=== PATIENT | male | born 1940 | race Caucasian/White ===

== ENCOUNTER 2021-08-21 16:12 | Inpatient (IN) | payer MEDICARE, OTHER ==
[~2021-08-21] VITALS: Ht 208.3 cm; Wt 79.6 kg
[2021-08-21 16:41] VITALS: BP 122/67; PULSE 83; TEMP 97.8
[2021-08-21] MEDS ORDERED: TYLENOL 325MG325 MG PO (16:48)
[2021-08-21] MEDS ORDERED: LYRICA 50MG CAP50 MG PO ×2 (16:48→16:51)
[2021-08-21] MEDS ORDERED: EPA FISH OIL1 SGL PO (16:51)
[2021-08-21] MEDS ORDERED: IRON BISGLYCINA28 MG PO (16:52)
[2021-08-21] MEDS ORDERED: PRILOSEC 20MG20 MG PO (16:52)
[2021-08-21] MEDS ORDERED: K-DUR 10 MEQ T10 MEQ (16:53)
[2021-08-21] MEDS ORDERED: LUTEIN6 MG PO (16:55)
[2021-08-21] MEDS ORDERED: LANOXIN 0.120.125 MG PO (16:56)
[2021-08-21] MEDS ORDERED: VITAMIN D31000 IU PO (16:58)
[2021-08-21] MEDS ORDERED: FLOMAX 0.40.4 MG/CAP PO (16:59)
[2021-08-21 17:53] LABS: PROTHROMBIN TIME 11.4 SECONDS (9.7-12.8)
[2021-08-21 17:55] LABS: PARTIAL THROMBOPLASTIN TIME 28.1 SECONDS (26.0-37.0)
--- NOTE | 2021-08-21 19:00 | NUR ---
RECEIVED CHANGE OF SHIFT REPORT FROM DAY SHIFT RN.
--- NOTE | 2021-08-21 19:00 | NUR ---
Admission assessment completed, alert/oriented, poor historian, denies pain or discomfort at this time, I notified Hospitalist of his arrival to room 331, notified his of his arrival, reviewed meds/ allergies/ pharmacy with her over the phone as again patient is poor historian, heart irregular/ placed on tele and in A.fib and started on heparin gtt, lungs CTA/ denies resp.difficulty, IV present to right hand that was started at [facility]/ 20g Iv, he denies other needs at this time, will continue to monitor
[2021-08-21 20:18] VITALS: BP 107/78; PULSE 53; TEMP 97.4
[2021-08-22 00:20] VITALS: BP 113/65; PULSE 75; TEMP 98
[2021-08-22 04:17] VITALS: BP 112/69; PULSE 67; TEMP 98
--- NOTE | 2021-08-22 05:30 | NUR ---
CONFIRMED WITH ONCALL HOSPITALIST TO READ EKG TO BE DONE NOW ACCORDING TO TELE PROTOCOL.
--- NOTE | 2021-08-22 07:02 | NUR ---
CHANGE OF SHIFT REPORT GIVEN TO DAY SHIFT RNKIA.
[2021-08-22 07:20] VITALS: BP 115/69; PULSE 74; TEMP 97.8
[2021-08-22 08:09] LABS: BASO # 0.1 K/mm3 (0.0-0.2); BASO % 1.5 % (0.0-2.0); EOS # 0.3 K/mm3 (0.0-0.7); EOS % 6.1 % (0.0-4.0); GRAN # 2.2 K/mm3 (1.4-6.5); GRAN % 46.7 % (42.2-75.2); HEMOGLOBIN 12.6 g/dl (13.5-18.0); LYMPH # 1.7 K/mm3 (1.2-3.4); LYMPH % 35.6 % (20.0-51.0); MEAN CELL VOLUME 89 fl (80.0-100.0); MEAN CORPUSCULAR HEMOGLOBIN 31 pg (27-31); MEAN CORPUSCULAR HGB CONC 34 g/dl (33.0-37.0); MEAN PLATELET VOLUME 9.1 fl (7.4-10.4); MONO # 0.5 K/mm3 (0.1-0.6); MONO % 9.9 % (1.7-9.3); PLATELET COUNT 203 K/mm3 (130-400); RED BLOOD COUNT 4.11 M/mm3 (4.20-5.60); REDCELL DISTRIBUTION WIDTH-CV 13.8 % (11.5-14.5)
[2021-08-22 08:19] LABS: CALCIUM 8.3 mg/dL (8.4-10.2); CREATININE, serum 0.81 mg/dL (0.72-1.25); POTASSIUM 4.2 mmol/L (3.5-4.5)
[2021-08-22 08:29] LABS: HEMATOCRIT 36.7 % (42.0-52.0)
--- NOTE | 2021-08-22 09:24 | NUR ---
SW met with the patient to discuss discharge plan. The patient lives in [place] with his , Ivania (ph#[phone]). He reports independence with ADLs and does not have any DME. The patient's PCP is Dr. Kassy Armas and he receives his medications from [facility]. The patient does not have a DPOA-HC and he was not interested in completing one at this time. The patient plans on returning home with his upon discharge. PT is recommending home. No additional needs at this time. *Discharge plan: home with *
--- NOTE | 2021-08-22 09:25 | NUR ---
Initial visit; Patient thanked [employer] Consultant for stopping and spoke about his [employer]rentice contacting him. [employer] Consultant wished him well and a good recovery.
[2021-08-22 12:00] VITALS: BP 120/75; PULSE 100; TEMP 97.4
[2021-08-22 12:28] VITALS: BP 118/65; PULSE 78
[2021-08-22 16:00] VITALS: BP 130/88; PULSE 94; TEMP 97.9
[2021-08-22] MEDS ORDERED: CORDARONE200 MG/TAB PO (16:04)
[2021-08-22] MEDS ORDERED: ASPIRIN 81M81 MG/TA2 PO (16:05)
--- NOTE | 2021-08-22 17:23 | NUR ---
PT MET CRITERIA FOR DISCHARGE,VSS. PT IN SINUS RHYTHM AT TIME OF DISCHARGE, DENIES CHEST PAIN. IV REMOVED WITHOUT COMPLICATIONS, CATHETER INTACT. DISCHARGE INSTRUCTIONS REVIEWED, PT VERBALIZED UNDERSTANDING. PT AWARE OF F/U APPTS TO MAKE AND OF PRESCRIPTIONS TO RES COUNSELOR. PT DC TO HOME VIA AMBULATORY ACCOMPANIED BY CHILDREN'S BOOK AUTHOR.
== END 2021-08-22 17:25 | disposition home or self-care (01) | DRG 310 ==
LOC: SURG 16:12
PROVIDERS: Physician Assistant; ADMIT Internal Medicine
DX: I48.0 Paroxysmal atrial fibrillation (principal); I95.1 Orthostatic hypotension; N40.0 Benign prostatic hyperplasia without lower urinary tract symptoms; F32.A Depression, unspecified; K21.9 Gastro-esophageal reflux disease without esophagitis; I44.0 Atrioventricular block, first degree; Z23 Encounter for immunization
CPT/HCPCS: 99223-AI; 99239; J1644